=== PATIENT | female | born 1985 | race Caucasian/White ===

== ENCOUNTER 2017-03-27 19:34 | Emergency (ER) | payer OTHER ==
[~2017-03-27] VITALS: Ht 162.6 cm; Wt 112.0 kg
[~2017-03-27 19:34] MED LIST: ACTOS30 MG PO; ANTIVERT25 MG PO; ASPIRIN EC81 MG PO; CARVEDILOL6.25 MG PO; JANUVIA25 MG PO; METFORMIN HCL500 MG PO; NITROGLYCERIN0.4 MG SL; NORCO 5-325 TA1 EACH PO; PROMETHAZINE HC25 M1 PO; ROBAXIN500 MG PO; TRAMADOL HCL50 MG PO; VALIUM5 MG PO; VICODIN 5-5001 EACH PO
== END 2017-03-27 21:40 | disposition home or self-care (01) ==
LOC: ED 19:34
DX: O03.9 Complete or unspecified spontaneous abortion without complication (principal); E11.9 Type 2 diabetes mellitus without complications; I10 Essential (primary) hypertension; Z87.891 Personal history of nicotine dependence; Z90.49 Acquired absence of other specified parts of digestive tract; Z79.899 Other long term (current) drug therapy; Z88.8 Allergy status to other drugs, medicaments and biological substances; Z79.82 Long term (current) use of aspirin; Z79.84 Long term (current) use of oral hypoglycemic drugs
CPT/HCPCS: 80048; 84702; 85025; 86900; 86901; 99283

== ENCOUNTER 2017-07-05 18:24 | Emergency (ER) | payer OTHER ==
[~2017-07-05] VITALS: Ht 162.6 cm; Wt 108.9 kg
[2017-07-05] MEDS ORDERED: JANUMET XR 50-1 EAC1 PO (18:40)
[2017-07-05] MEDS ORDERED: LANTUS100 UNITS/ SUB-Q (18:40)
[2017-07-05] MEDS ORDERED: MINIPRESS2 MG PO (18:41)
[2017-07-05] MEDS ORDERED: DULOXETINE HCL60 MG PO (18:41)
[2017-07-05] MEDS ORDERED: CEPHALEXIN500 MG PO (19:12)
[2017-07-05] MEDS ORDERED: NORCO 5-325 TA1 EACH PO (19:12)
== END 2017-07-05 19:26 | disposition home or self-care (01) ==
LOC: ED 18:24
DX: J10.83 Influenza due to other identified influenza virus with otitis media (principal); E11.9 Type 2 diabetes mellitus without complications; I10 Essential (primary) hypertension; Z87.891 Personal history of nicotine dependence; Z90.49 Acquired absence of other specified parts of digestive tract; Z88.8 Allergy status to other drugs, medicaments and biological substances; Z79.899 Other long term (current) drug therapy; Z79.82 Long term (current) use of aspirin; Z79.4 Long term (current) use of insulin
CPT/HCPCS: 99283

== ENCOUNTER 2018-11-14 18:39 | Emergency (ER) | payer OTHER ==
[~2018-11-14] VITALS: Ht 162.6 cm; Wt 108.9 kg
[~2018-11-14 18:39] MED LIST changes: +CEPHALEXIN500 MG PO; +DULOXETINE HCL60 MG PO; +JANUMET XR 50-1 EAC1 PO; +LANTUS100 UNITS/ SUB-Q; +MINIPRESS2 MG PO
== END 2018-11-14 21:19 | disposition home or self-care (01) ==
LOC: ED 18:39
DX: S16.1XXA Strain of muscle, fascia and tendon at neck level, initial encounter (principal); S29.012A Strain of muscle and tendon of back wall of thorax, initial encounter; I10 Essential (primary) hypertension; E11.9 Type 2 diabetes mellitus without complications; Z87.891 Personal history of nicotine dependence; Z88.8 Allergy status to other drugs, medicaments and biological substances; Z88.1 Allergy status to other antibiotic agents; Z79.899 Other long term (current) drug therapy; V89.2XXA Person injured in unspecified motor-vehicle accident, traffic, initial encounter
CPT/HCPCS: 72040; 72070; 99283

== ENCOUNTER 2018-11-21 23:52 | Emergency (ER) | payer OTHER ==
[~2018-11-21] VITALS: Ht 162.6 cm; Wt 106.1 kg
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
[2018-11-22] MEDS ORDERED: GLUCOPHAGE500 MG PO (00:12)
[2018-11-22] MEDS ORDERED: VICTOZA 3-0.6 MG/0.1 SUB-Q (00:12)
[2018-11-22] MEDS ORDERED: OMEPRAZOLE20 MG PO (01:47)
== END 2018-11-22 02:10 | disposition home or self-care (01) ==
LOC: ED 23:52
DX: R11.2 Nausea with vomiting, unspecified (principal); E11.9 Type 2 diabetes mellitus without complications; I10 Essential (primary) hypertension; R10.13 Epigastric pain; Z87.891 Personal history of nicotine dependence; Z88.8 Allergy status to other drugs, medicaments and biological substances; Z79.899 Other long term (current) drug therapy; Z79.4 Long term (current) use of insulin
CPT/HCPCS: 80053; 81001; 82010; 82800; 83690; 85025; 96361; 96374; 96375; 96376; 99284-25; J1170; J2550; J7030

== ENCOUNTER 2020-12-07 17:33 | Emergency (ER) | payer OTHER ==
[~2020-12-07] VITALS: Ht 162.6 cm; Wt 106.1 kg
[~2020-12-07 17:33] MED LIST changes: +GLUCOPHAGE500 MG PO; +OMEPRAZOLE20 MG PO; +VICTOZA 3-0.6 MG/0.1 SUB-Q
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
== END 2020-12-07 22:56 | disposition home or self-care (01) ==
LOC: ED 17:33
DX: G43.909 Migraine, unspecified, not intractable, without status migrainosus (principal); I10 Essential (primary) hypertension; E11.9 Type 2 diabetes mellitus without complications; Z88.8 Allergy status to other drugs, medicaments and biological substances; Z79.899 Other long term (current) drug therapy
CPT/HCPCS: 70450; 96374; 96375; 99283-25; J1200; J1885; J2765; J7030

== ENCOUNTER 2021-09-13 11:18 | Emergency (ER) | payer OTHER ==
[~2021-09-13] VITALS: Ht 162.6 cm; Wt 103.5 kg
[2021-09-13] MEDS ORDERED: FREESTYLE LITE1 EAC1 MISC (14:34)
[2021-09-13] MEDS ORDERED: JARDIANCE10 MG PO (14:34)
[2021-09-13] MEDS ORDERED: HYDROXYZINE PAM25 MG PO (14:35)
[2021-09-13] MEDS ORDERED: BASAGLAR K100 UNIT/1 SQ (14:36)
[2021-09-13] MEDS ORDERED: INSULIN AS100 UNIT/3 SUB-Q (14:37)
== END 2021-09-13 17:18 | disposition home or self-care (01) ==
LOC: ED 11:18
DX: S63.610A Unspecified sprain of right index finger, initial encounter (principal); E11.9 Type 2 diabetes mellitus without complications; I10 Essential (primary) hypertension; Z88.8 Allergy status to other drugs, medicaments and biological substances; Z79.899 Other long term (current) drug therapy; Z79.4 Long term (current) use of insulin; W18.30XA Fall on same level, unspecified, initial encounter
CPT/HCPCS: 73130; 99283-25

== ENCOUNTER 2024-10-12 16:44 | Emergency (ER) | payer OTHER | END 2024-10-12 20:49 | disposition home or self-care (01) | LOC: ED 16:44 | DX: K52.9 Noninfective gastroenteritis and colitis, unspecified (principal); E11.9 Type 2 diabetes mellitus without complications; I10 Essential (primary) hypertension; Z79.4 Long term (current) use of insulin; Z79.899 Other long term (current) drug therapy; Z91.040 Latex allergy status; Z91.018 Allergy to other foods; Z88.8 Allergy status to other drugs, medicaments and biological substances ==

== ENCOUNTER 2024-12-04 11:57 | Emergency (ER) | payer OTHER ==
[~2024-12-04] VITALS: Ht 162.6 cm; Wt 91.8 kg
[~2024-12-04 11:57] MED LIST changes: +BACTRIM DS TAB1 EACH PO; +BASAGLAR K100 UNIT/1 SQ; +CARAFATE1 GM PO; +FENOFIBRATE48 MG PO; +FREESTYLE LITE1 EAC1 MISC; +HYDROXYZINE PAM25 MG PO; +INSULIN AS100 UNIT/3 SUB-Q; +JARDIANCE10 MG PO; +LOPERAMIDE2 M1 PO; +ONDANSETRON ODT4 MG PO; +PRAVASTATIN SOD10 MG PO; +PRILOSEC OTC20 MG PO; +PROMETHAZINE12.5 M1 PO
[2024-12-04 12:35] LABS: BASOPHILS 0.4 % (0.1-1.2); EOSINOPHILS 0.3 % (0.7-5.8); LYMPHOCYTES 26.3 % (19.3-51.7); MCH 27.6 PG (25.6-32.2); MCHC 34.5 g/dL (32.2-35.5); MCV 79.9 fL (79.4-94.8); MONOCYTES 6.1 % (4.7-12.5); NEUTROPHILS 66.5 % (34.0-71.1); RBC 5.87 M/uL (3.93-5.22)
[2024-12-04 13:00] LABS: ALT (SGPT) 27.0 U/L (14-59); AST (SGOT) 14.0 U/L (15-37); GLOMERULAR FILTRATION RATE,EST 92.0 mL/min (>60); PROTEIN, TOTAL 8.1 g/dL (6.4-8.2); UREA NITROGEN 8.0 mg/dL (7-18)
[2024-12-04 14:06] LABS: BLOOD/HGB, URINE NEGATIVE (Negative); KETONE, URINE NEGATIVE (Negative); LEUK ESTERASE, URINE NEGATIVE (negative); NITRITE, URINE NEGATIVE (negative)
[2024-12-04] MEDS ORDERED: REGLAN10 MG PO (16:03)
[2024-12-04 16:13] VITALS: BP 113/72
== END 2024-12-04 16:15 | disposition home or self-care (01) ==
LOC: ED 11:57
PROVIDERS: Emergency Medicine
DX: R10.13 Epigastric pain (principal); R10.33 Periumbilical pain; R11.2 Nausea with vomiting, unspecified; R19.7 Diarrhea, unspecified
CPT/HCPCS: 36415; 74177; 80053; 81003; 83690; 83735; 84703; 85025; 99284-25; Q9967